=== PATIENT | male | born 1980 | race Caucasian/White ===

== ENCOUNTER → 2016-04-17 | Outpatient (CLI) | payer OTHER | END | disposition home or self-care (01) | LOC: LABWHC1 13:34 | PROVIDERS: ATTEND Internal Medicine | DX: C73 Malignant neoplasm of thyroid gland (principal) | CPT/HCPCS: 36415; 84443 ==

== ENCOUNTER → 2016-06-26 | Outpatient (CLI) | payer OTHER ==
--- NOTE | 2016-06-26 17:20 | CONS ---
DATE OF CONSULTATION: 06/26/2016 This patient is a 35-year-old gentleman who has been evaluated in the sleep center for treatment of obstructive sleep apnea/hypopnea syndrome. HISTORY OF PRESENT ILLNESS/SLEEP-WAKE EVALUATION: Patient has had history of obstructive sleep apnea since 2010. At that time patient presented with symptoms of significant excessive daytime sleepiness which was confirmed by multiple sleep latency test. Polysomnogram showed mild obstructive sleep apnea. Patient was on treatment with CPAP with a pressure of 8 cm of water. With this regimen, patient slept better and felt better. About 3 months ago his machine was broken. He has difficulties sleeping without the machine; developed sleepiness. [place] Sleepiness Scale increased to 16. His sleep schedule is from 9:30 to 6 a.m. basically 7 days a week. No problem falling asleep. No TV in bedroom. He also has episodes of stopped breathing during sleep, grinding teeth, awakenings with gasping for air, restless legs, sweating up to 5 times at night with 2 episodes of nocturia. No history of hypnagogic hallucinations, sleep paralysis or cataplexy. In the morning patient wakes up tired, has difficulties paying attention, falling asleep during the day, worrying about his sleep. He has problems with memory, concentration, irritability, anxiety. PAST MEDICAL HISTORY: Positive for thyroid carcinoma. PAST SURGICAL HISTORY: Thyroidectomy in February of 2016. MEDICATIONS: 1. Levothyroxine. 2. Calcitriol. 3. Calcium supplement. REVIEW OF SYSTEMS: Multiple awakenings from sleep, sleepiness during the day. No fevers. No double vision. No recent chest pain. No shortness of breath. No abdominal pain. No bleeding episodes. No blood in urine. No seizure episodes. SOCIAL HISTORY: Positive for smoking cigars. Alcohol consumption occasional. FAMILY HISTORY: Hypertension, sleep apnea, thyroid problems. PHYSICAL EXAMINATION: GENERAL: A pleasant gentleman without distress. VITAL SIGNS: BP 108/78, HR 88, RR 16. Height 5 feet 10 inches. Weight 275. BMI 39.4. Neck 17-3/4 inches in circumference. Temperature 98.1. Oxygen saturation at room air 99%. HEENT: PERRLA, EOMI. Evaluation of oropharynx showed tongue protrudes midline; moderately low position of soft palate. Some restriction of nasal breathing. Neck has horizontal scar after thyroidectomy. NECK: Supple. No JVD. Thyroid is not palpable. LUNGS: Clear to percussion and to auscultation. Good air exchange. No wheezing or rhonchi. HEART: S1, S2 regular. No murmurs, gallops or rubs. ABDOMEN: Obese. EXTREMITIES: No clubbing or cyanosis. DIRECTOR EXPORT: Awake, alert, and oriented x3. Cranial nerves 2 to 7 intact. There is no fasciculation or atrophy noted. No focal deficits observed. IMPRESSION: 1. Snoring, episodes of stopped breathing during sleep, low position of soft palate, sleepiness, history of obstructive sleep apnea. 2. Obstructive sleep apnea/hypopnea syndrome. Patient's weight has increased by about 20 pounds since previous sleep study. 3. Obesity; body mass index 39.4. 4. History of thyroid carcinoma. 5. Status post total thyroidectomy in February of 2016, on treatment with levothyroxine and Calcitriol. PLAN: 1. Repeat CPAP titration for re-evaluation of effective CPAP pressure at the present time after his weight increase. 2. Patient will receive new CPAP unit. 3. Losing weight. 4. Sleep hygiene with regular time in bed for at least 8 hours. 5. No driving if feeling any sleepiness. Thank you very much for allowing me to participate in the management your patient. Sincerely, Reed Ruiz MD, PhD, FAASM. Diplomat of [place] [employer], Sleep Medicine Board by [employer] [place] [employer] [facility] [place]
== END | disposition home or self-care (01) ==
LOC: SLEEP 14:11
PROVIDERS: ATTEND Internal Medicine
DX: G47.33 Obstructive sleep apnea (adult) (pediatric) (principal); E66.9 Obesity, unspecified; Z68.39 Body mass index [BMI] 39.0-39.9, adult; Z79.899 Other long term (current) drug therapy
CPT/HCPCS: 99211

== ENCOUNTER → 2016-06-26 | Outpatient (CLI) | payer OTHER | END | disposition home or self-care (01) | LOC: LABWHC1 16:09 | PROVIDERS: ATTEND Nuclear Medicine | DX: C73 Malignant neoplasm of thyroid gland (principal); R79.89 Other specified abnormal findings of blood chemistry | CPT/HCPCS: 36415; 82310; 83970 ==

== ENCOUNTER 2016-10-15 13:26 | Emergency (ER) | payer OTHER ==
[2016-10-15] MEDS ORDERED: FAMOTIDINE 20 MG/2 ML VIAL IV STA (13:33)
[2016-10-15] MEDS ORDERED: IPRATROPIUM-ALBUTEROL 3 ML NEB INHALATION STA (13:33)
[2016-10-15] MEDS ORDERED: methylPREDNISolone SOD SUCCI 125 MG/2 ML VIAL IV STA (13:33)
[2016-10-15 13:37] VITALS: RESP 20
--- NOTE | 2016-10-15 14:08 | ED ---
General Adult HPI - General Chief complaint: Allergic Reaction Stated complaint: allergic reaction Time Seen by Provider: 10/15/16 13:35 Source: EMS, RN notes reviewed Mode of arrival: EMS Limitations: no limitations - History of Present Illness Initial comments: This is a 36-year-old male who presents emergency Department after being bit by a hornet on his back. Patient states about 15 minutes after he was bitten he started feeling lightheaded and started having some tightness in his chest. Patient called EMS when EMS arrived he was having retractions as well as wheezing diffusely according to the phosphoric acid operator. Patient was given epinephrine IM as well as Benadryl IV. Patient states he feels better but he still has some tightness in his chest and he now does have a minor headache. Patient did not have any hives or rash. Patient denies any recent fever chills or cough. - Related Data Home Medications Medication Instructions Recorded Confirmed Calcitriol [Rocaltrol] 0.5 mcg PO HS 10/15/16 10/15/16 Calcitriol [Rocaltrol] 1 mcg PO DAILY 10/15/16 10/15/16 Levothyroxine Sodium [Synthroid] 224 mcg PO DAILY 10/15/16 10/15/16 Previous Rx's Medication Instructions Recorded EPINEPHrine (Auto Inject) [Epipen] 0.3 mg IM ONCE PRN #2 syringe 10/15/16 predniSONE 40 mg PO DAILY #8 tab 10/15/16 Allergies Allergy/AdvReac Type Severity Reaction Status Date / Time bee venom protein (honey bee) Allergy Anaphylaxis Verified 10/15/16 14:06 hornet venom Allergy Anaphylaxis Verified 10/15/16 14:06 Review of Systems ROS Statement: Those systems with pertinent positive or pertinent negative responses have been documented in the HPI. ROS Other: All systems not noted in ROS Statement are negative. Past Medical History Past Medical History: Cancer, Thyroid Disorder Additional Past Medical History / Comment(s): nodules on thyroid, lymphadenopathy of neck, thyroid cancer History of Any Multi-Drug Resistant Organisms: None Reported Past Surgical History: Orthopedic Surgery Additional Past Surgical History / Comment(s): bilateral ankle fractures Past Anesthesia/Blood Transfusion Reactions: No Reported Reaction Past Psychological History: No Psychological Hx Reported Smoking Status: Former smoker Past Alcohol Use History: Occasional Past Drug Use History: None Reported - Past Family History Mother Family Medical History: Thyroid Disorder General Exam - General Exam Comments Initial Comments: GENERAL: Patient is well-developed and well-nourished. Patient is nontoxic and well- hydrated and is in mild distress. ENT: Neck is soft and supple. No significant lymphadenopathy is noted. Oropharynx is clear. Moist mucous membranes. Neck has full range of motion without eliciting any pain. EYES: The sclera were anicteric and conjunctiva were pink and moist. Extraocular movements were intact and pupils were equal round and reactive to light. Eyelids were unremarkable. PULMONARY: Unlabored respirations. Good breath sounds bilaterally. No audible rales rhonchi or wheezing was noted. CARDIOVASCULAR: There is a regular rate and rhythm without any murmurs gallops or rubs. ABDOMEN: Soft and nontender with normal bowel sounds. No palpable organomegaly was noted. There is no palpable pulsatile mass. SKIN: Skin is clear with no lesions or rashes and otherwise unremarkable. NEUROLOGIC: Patient is alert and oriented x3. Cranial nerves II through XII are grossly intact. Motor and sensory are also intact. Normal speech, volume and content. Symmetrical smile. MUSCULOSKELETAL: Normal extremities with adequate strength and full range of motion. No lower extremity swelling or edema. No calf tenderness. LYMPHATICS: No significant lymphadenopathy is noted PSYCHIATRIC: Normal psychiatric evaluation. Normal interpersonal interactions appears functionally intact in deals appropriately with others. No signs of depression. No signs of anxiety. Limitations: no limitations Course Vital Signs 10/15/16 10/15/16 10/15/16 13:33 13:38 13:46 Temperature 97.7 F Pulse Rate 77 77 77 Respiratory 20 Rate Blood Pressure 122/73 O2 Sat by Pulse 97 Oximetry 10/15/16 14:39 Temperature Pulse Rate 91 Respiratory 20 Rate Blood Pressure 132/83 O2 Sat by Pulse 100 Oximetry Medical Decision Making - Medical Decision Making EKG shows normal sinus rhythm at 80 bpm NC interval is 184 QRS is 116 QT interval 374 QTC is 431 per patient's EKG shows no ST segment elevation or depression or T wave normalities are noted.. Patient is a symptomatically this point his oxygen 100% on room air. Patient's family and patient are requesting to go home. Critical Care Time Critical Care Time: Yes Total Critical Care Time: 35 Disposition Clinical Impression: Anaphylaxis Disposition: HOME SELF-CARE Condition: Good Instructions: Anaphylaxis (ED) Additional Instructions: Patient should take prednisone as prescribed. Prescriptions: EPINEPHrine (Auto Inject) [Epipen] 0.3 mg IM ONCE PRN #2 syringe PRN Reason: Difficulty breathing predniSONE 40 mg PO DAILY #8 tab Referrals: Merle Timmons DO [Primary Care Provider] - 1-2 days Time of Disposition: 15:07
[2016-10-15] MEDS ORDERED: LEVOTHYROXINE 112 MCG TAB PO STA (14:15)
[2016-10-15 15:36] VITALS: BP 132/56; PULSE 71; TEMP 98.3
== END 2016-10-15 15:15 | disposition home or self-care (01) ==
LOC: EC 13:26
DX: T78.2XXA Anaphylactic shock, unspecified, initial encounter (principal); R51 Headache; R42 Dizziness and giddiness; R07.89 Other chest pain; E07.9 Disorder of thyroid, unspecified; Z85.850 Personal history of malignant neoplasm of thyroid; Z87.891 Personal history of nicotine dependence; Z79.899 Other long term (current) drug therapy; Z91.030 Bee allergy status; Z91.038 Other insect allergy status
CPT/HCPCS: 94640; 99284; 96374; 96375; J2930